=== PATIENT | male | born 1945 | race Caucasian/White ===

== ENCOUNTER 2019-09-25 15:19 | Inpatient (IN) | payer MEDICARE, OTHER, SELFPAY ==
[2019-09-25] VITALS (10 sets, daily range): BP systolic 111–158; BP diastolic 54–69; PULSE 67–88; RESP 18–20; TEMP 36.6–36.8; O2SAT 97–100; BMI 32.0; BMI 31.1
--- NOTE | 2019-09-25 15:52 | EKG12_ITS ---
Test Reason : Blood Pressure : / mmHG Vent. Rate : 066 BPM Atrial Rate : 066 BPM P-R Int : 150 ms QRS Dur : 086 ms QT Int : 416 ms P-R-T Axes : 053 -16 031 degrees QTc Int : 436 ms Sinus rhythm with Premature atrial complexes Otherwise normal ECG Confirmed by ARETHA VILLAFANA, ASAEL ([id number]), movie editor LOGAN LAZO ([id number]) on 09/27/2019 12:59:54 PM Referred By: Confirmed By:NELLI CARIAS MD
--- NOTE | 2019-09-25 15:58 | RAD_ITS ---
We are attempting to reach an attending provider to discuss findings. An addendum with communication details will be sent when the communication is complete. STUDY: X-RAY CHEST REASON FOR EXAM: Male, 73 years old. CHEST PAIN WITH SOB TECHNIQUE: AP COMPARISON: None. FINDINGS: The lungs are clear and expanded. There is a noncalcified solid nodule in the right upper lobe measuring 2.87 x 2.74 cm possibly neoplastic. There is a second smaller nodular density in left upper lobe measuring approximately 7 mm. There is no demonstrated pleural abnormality. Heart is enlarged. Normal mediastinum and irma. Normal visualized pulmonary arteries. Normal visualized aortic arch and descending thoracic aorta. Dorsal spine demonstrates degenerative change. Normal visualized ribs, clavicles, and shoulders. There is no demonstrated abnormality of the visualized soft tissue structures of the upper abdomen. RAD/Chest 1 View (Portable) IMPRESSION: No acute cardiopulmonary pathology however there is noncalcified nodule in the right upper lobe and small one in the left upper lobe possibly neoplasm. CT recommended for further evaluation Electronically Signed: Adalid Lundy MD at 16:10 EDT , Service support ,
--- NOTE | 2019-09-25 15:59 | ED.DCSUM_ITS ---
History of Present Illness Chief Complaint: Abn Labs Informant: Patient Narrative: Patient presents stating that he needs blood and platelet transfusion. He has a history of myelodysplastic syndrome and follows with Dr. Ever Torres, hematology at [facility]. Patient states he was up there last week and had blood work obtained. He has been having exertional chest pain. Patient was at the office again today and was told he needed to have a transfusion. Patient states he was told he would need to be in the hospital for a week because they would want to do a series of injections, and the patient did not want to be in [facility] that long so he came back to [place] to be admitted here. They did not bring the records or lab results with him. Patient is sitting in a bedside chair at this time he denies any chest pain or dyspnea at rest. - Past Medical History (1) Myelodysplastic syndrome Status: Chronic Past Medical History - Allergies and Home Meds Allergies/Adverse Reactions: Allergies No Known Allergies Allergy (Verified 09/25/19 15:22) Primary Care Physician: Dereje Elizabeth MD [PATHOLOGY STAFF PHYSICIAN] - Lives: Spouse/ Significant Other Review of Systems General: Denies: Chills, Fever Eyes: Denies: Visual changes - bilaterally ENT: Denies: Bilateral ear pain Cardiovascular: Reports: Chest pain Respiratory: Denies: Dyspnea, Cough, Sputum Gastrointestinal: Denies: Abdominal pain, Nausea, Vomiting, Diarrhea Genitourinary: Denies: Dysuria Skin: Denies: Rash Neurological: Denies: Headache Allergy: Denies: Uticaria Physical Exam Vital Signs/Narrative: Vital Signs Temp Pulse Resp BP Pulse Ox 09/25/19 15:20 98.0 F 75 20 H 158/69 H 97 Inital Vital Signs reviewed: Yes General: Well nourished, Well developed Head: Normocephalic ENT: Moist mucous membranes Neck: Supple Cardiovascular: Regular rate, Regular rhythm Respiratory: No distress, CTA bilaterally Abdomen: Soft, Nontender, Normal bowel sounds Back: Nontender Extremities: Nontender Skin: Pallor Neurological: Alert, Oriented x3 Psychological: Normal affect Diagnostic/Tx/Re-eval Impressions Chest X-Ray 09/25/19 15:58 IMPRESSION: No acute cardiopulmonary pathology however there is noncalcified nodule in the right upper lobe and small one in the left upper lobe possibly neoplasm. CT recommended for further evaluation Electronically Signed: Adalid Lundy MD at 16:10 EDT , Service support , ADDENDUM: 09/25/19 1630 IMPRESSION: No acute cardiopulmonary pathology however there is noncalcified nodule in the right upper lobe and small one in the left upper lobe possibly neoplasm. CT recommended for further evaluation N.B. : The above information has been verbally conveyed by Adalid Lundy MD to Jen Pendleton MD, MD, on 09/25/2019 16:23:57 (ET). Electronically Signed: Adalid Lundy MD at 16:10 EDT , Service support , 09/25/19 15:58 Chest 1 View (Portable) [RAD] Stat Laboratory Results 09/25/19 09/25/19 09/25/19 16:30 16:30 16:30 WBC 2.5 L RBC 1.90 L Hgb 6.6 L Hct 19.8 L MCV 104.2 H MCH 34.7 H MCHC 33.3 RDW Std Deviation 54.9 H RDW Coeff of Javier 14.6 MPV 13.4 H Neut % (Auto) Not Reportable PT 14.9 INR 1.2 APTT 29.0 Sodium 142 Potassium 4.1 Chloride 111 H Carbon Dioxide 28.0 Anion Gap 3 L BUN 13 Creatinine 0.95 Estim Creat Clear Calc 70.29 Est GFR (MDRD) Af Amer 100 Est GFR (MDRD) Non-Af 82 BUN/Creatinine Ratio 13.6 Glucose 101 Calcium 9.0 Troponin I 0.049 H Crossmatch 09/25/19 16:30 WBC RBC Hgb Hct MCV MCH MCHC RDW Std Deviation RDW Coeff of Javier MPV Neut % (Auto) PT INR APTT Sodium Potassium Chloride Carbon Dioxide Anion Gap BUN Creatinine Estim Creat Clear Calc Est GFR (MDRD) Af Amer Est GFR (MDRD) Non-Af BUN/Creatinine Ratio Glucose Calcium Troponin I Crossmatch See Detail - EKG Initial EKG Interpretation: Sinus Rhythm - Sinus at 66 with occasional PACs. No acute ischemia. - Medical Decision Making I attempted to contact the patient's [place] physician, Dr. Ever Torres. I was able to speak with a nurse in the hematology department who was able to pull up the patient's recent records. On September 17 he had blood work obtained that revealed a hemoglobin of 8 and a platelet count of 20,000. His neutrophil count was 1.1. Nurse states she does not see in his note how many units of blood or platelets he wanted transfused, however states typically for those numbers they would transfuse 2 units of platelets and 1 unit of blood. Patient was ordered to 5 packs of platelets here and 1 unit of blood. Blood work today returns with a hemoglobin of 6.6 and platelet count of 16,000. Patient also had advised me that he was told he would likely need a series of shots over the next week. When I asked the nurse at the [place] about this she was guessing this was secondary to the patient's neutropenia. They are working on a voucher so the patient can be seen by 1 of the local field mechanical meter tester. My hope would be we could have hematology see him in-house and then arrange close follow-up going forward. Patient's chest x-ray did show a lung nodules. I did speak with the family and patient and notify them of these findings and need for follow-up. ED Disposition - Plan for ED Patient: Disposition: Acute [facility] Diagnosis: Pancytopenia, Exertional chest pain Referrals: Dereje Elizabeth MD [PATHOLOGY STAFF PHYSICIAN] -
--- NOTE | 2019-09-25 16:09 | ED.RN ---
NO OLD EKG
[2019-09-25 16:46] LABS: Hematocrit 19.8 % (40-54); Hemoglobin 6.6 g/dL (13.0-16.5); Mean Corp Hgb Conc 33.3 g/dL (32-36); Mean Corpuscular Hgb 34.7 pg (27.0-32.0); Mean Corpuscular Volume 104.2 fL (80-94); Mean Platelet Vol. 13.4 fl (6.2-12.0); POSITIVE COUNT YES; POSITIVE MORPHOLOGY YES; RBC Distribution Width CV 14.6 % (11.6-14.6); RBC Distribution Width SD 54.9 fl (35.1-43.9); White Blood Count 2.5 K/mm3 (4.4-11.0)
[2019-09-25 16:55] LABS: International Normalized Ratio 1.2; Prothrombin Time (Protime)PT. 14.9 SECONDS (11.7-14.9)
[2019-09-25 17:06] LABS: Anion Gap 3 (5-15); BUN 13 mg/dL (7-18); BUN/Creat Ratio 13.6 RATIO (10-20); Chloride 111 mmol/L (98-107); Creatinine, Serum 0.95 mg/dL (0.70-1.30); EST Glomerular Filtration Rate 82 mL/min (>60); Est Glom Filt Rate - Afr Amer 100 mL/min (>60); Estimated Creatinine Clearance 70.29 ml/min; Glucose 101 mg/dL (74-106); Potassium 4.1 mmol/L (3.5-5.1); Sodium Level 142 mmol/L (136-145)
[2019-09-25 17:09] LABS: Differential Indicated MANUAL DIFF; Platelet Count 16 K/mm3 (150-450)
[2019-09-25 17:17] LABS: Lymphocyte 47 % (19-41); Monocyte 2 % (0-10); Neutrophil-Band 8 % (0-5); Neutrophil-Segmented 43 % (47-70); Total Cells Counted 100 (MANUAL DIFF)
[2019-09-25 17:19] LABS: Anisocytosis 1+; Macrocytosis 1+
[2019-09-25 17:20] LABS: Platelet Estimate MKD DEC (ADEQ); Red Cell Morphology N CHROM NORMAL (NORM C&C)
[2019-09-25 17:21] LABS: Absolute Lymphocyte Count 1.18 X10^3/uL (0.83-4.51); Absolute Neutrophil Count 1.3 X10^3/uL (2.0-7.7)
--- NOTE | 2019-09-25 19:47 | EKG12_ITS ---
Test Reason : CP ADMISSION Blood Pressure : / mmHG Vent. Rate : 073 BPM Atrial Rate : 073 BPM P-R Int : 150 ms QRS Dur : 084 ms QT Int : 410 ms P-R-T Axes : 072 -18 042 degrees QTc Int : 451 ms Sinus rhythm with Premature atrial complexes Otherwise normal ECG No previous ECGs available Confirmed by EFRA VILLAFANA, MIRANDA ([id number]), sound editor LOGAN LAZO ([id number]) on 10/01/2019 7:52:54 AM Referred By: DR FERNANDEZ Confirmed By:MIRANDA KRAUS MD
--- NOTE | 2019-09-25 19:55 | PCM.HP.STD ---
Problem List (1) Myelodysplastic syndrome Status: Chronic (2) Pancytopenia Status: Acute Comment: Acute on chronic (3) Exertional chest pain Status: Acute History of Present Illness Date of Admission: 09/25/19 Chief Complaint: Severe anemia and thrombocytopenia. Was sent from [facility]. 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 Ever Burns for PRBC and platelet transfusion. Patient also complaining of exertional chest pain on walking which resolves after taking rest. He also has dyspnea on exertion but denies diaphoresis dizziness or syncope. Patient was also told that he will remain in the [facility] for a week therefore he did not want to stay and came to [facility]. Patient does not have chest pain or shortness of breath at rest. In ED, vital signs are stable. Blood pressure 158/69. CBC shows pancytopenia, WBC 2.5 thousand, H&H 6.6/20, platelet count 16,000. Neutrophil bands 8%, ANC 1.3K. Morphology shows anisocytosis, and microcytosis. First troponin 0 0.049. Twelve-lead EKG shows sinus rhythm with PACs at 66 bpm. QTc [address] abnormality. No previous EKG available to compare with. Chest x-ray reported as 2.8 x 2.7 cm noncalcified solid nodule in right upper lobe possibly neoplastic. Second small nodular density left upper lobe measuring approximately [address] scan recommended by radiologist. This is a new information for the patient. Patient quit smoking in 1973. At most about 12 pack years of smoking. Patient has history of orange kind of chemical exposure during [place] war. 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 [] Past Medical History Past Medical History (Chronic Problems): Chronic Problems Myelodysplastic syndrome (Chronic) Allergies No Known Allergies Allergy (Verified 09/25/19 15:22) Home Medications: Ambulatory Orders Medication Instructions Recorded Cholecalciferol (Vitamin D3) 2,000 unit PO DAILY 09/25/19 [Vitamin D3] Multivitamins,Therapeutic 1 tab PO DAILY 09/25/19 [Multivitamin] Simvastatin 20 mg PO DAILY 09/25/19 Lives: Spouse/ Significant Other Smoking Status: Former smoker Tobacco Use: Cigarettes, Pipe - *Family History Paternal History Items: No pertinent history - No first-degree history of cancer in father mother brother sister. Review of Systems Constitutional: Reports: Malaise, Weakness. Denies: Chills, Fever, Weight Change HEENT: Denies: Head Aches, Sinus Congestion, Sinus Drainage Cardiovascular: Reports: Chest Pain - On exertion, Chest Pressure. Denies: Palpitations Respiratory: Reports: Shortness of breath upon exertion. Denies: Cough, Shortness of breath at rest, Sputum production Gastrointestinal: Denies: Abdominal Pain, Nausea, Vomiting Genitourinary: Denies: Dysuria Musculoskeletal: Denies: Joint Pain, Joint Tenderness Skin: Denies: Rash, Wounds Neurological: Denies: Numbness, Tingling, Focal weakness Psychiatric: Denies: Anxiety, Depression, Homicidal Ideations, Suicidal Ideations Hematologic/ Lymphatic: Reports: Easy Bruising, Easy Bleeding. Denies: Petechiae, Purpura VTE Information - Inpt Only VTE Present on Admission: No VTE Mechan Device Prophylaxis: SCD's VTE Pharm Prophylaxis ordered?: - Severe thrombocytopenia and anemia Reason prophylaxis not ordered:: Medical Contraindication - Severe thrombocytopenia and anemia Patient Problems: Active and Suspected Problems Pancytopenia (Acute) Acute on chronic Exertional chest pain (Acute) - Physical Exam Vitals/I&O's: Vital Signs Temp Pulse Resp BP Pulse Ox 98.0 F 68 19 H 117/65 98 09/25/19 18:39 09/25/19 18:39 09/25/19 18:39 09/25/19 18:39 09/25/19 18:39 Oxygen Delivery Method Room Air Weight: 216 lb 14.958 oz Body Mass Index (BMI) 32.0 General: Alert, Oriented x3, Cooperative HEENT: Atraumatic, PERRLA, EOMI, Normocephalic Neck: Supple, No JVD, Negative Carotid Bruits Lungs: Clear to auscultation, No rhonchi, No wheeze, No rales, Diminished Cardiovascular: Regular rate, Regular Rhythm, Normal S1, Normal S2, No murmurs Abdomen: Bowel Sounds Present, Soft, Non Tender, Non-Distended Extremities: Capillary Refill Less than 3 Seconds, Edema - Mild 1+ ankle edema Skin: No rashes, No breakdown Musculoskeletal: No Tenderness to Palpation of Joints or Extremities, Arthritic Changes Neurological: Cranial nerves II-XII grossly intact, Neuro grossly intact, Motor Exam 5/5 strength throughout Psych/Mental Status: Normal Affect, Appropriate Laboratory Results 09/25/19 16:30: WBC 2.5 L, RBC 1.90 L, Hgb 6.6 L, Hct 19.8 L, MCV 104.2 H, MCH 34.7 H, MCHC 33.3, RDW Std Deviation 54.9 H, RDW Coeff of Javier 14.6, Plt Count 16 L*, MPV 13.4 H, Neut % (Auto) Not Reportable, Absolute Neuts (auto) 1.3 L, Absolute Lymphs (auto) 1.18, Total Counted 100, Neutrophils % (Manual) 43 L, Band Neutrophils % 8 H, Lymphocytes % (Manual) 47 H, Monocytes % (Manual) 2, Diff Path Review November, Platelet Estimate MKD DEC, RBC Morphology N CHROM, Anisocytosis 1+, Macrocytosis 1+ 09/25/19 16:30: PT 14.9, INR 1.2, APTT 29.0 09/25/19 16:30: Sodium 142, Potassium 4.1, Chloride 111 H, Carbon Dioxide 28.0, Anion Gap 3 L, BUN 13, Creatinine 0.95, Estim Creat Clear Calc 70.29, Est GFR (MDRD) Af Amer 100, Est GFR (MDRD) Non-Af 82, BUN/Creatinine Ratio 13.6, Glucose 101, Calcium 9.0, Troponin I 0.049 H 09/25/19 16:30: Blood Type O POSITIVE, Antibody Screen NEGATIVE, Crossmatch See Detail Current Medications Acetaminophen (Tylenol) 650 mg PO Q6H PRN PRN PRN Reason: Pain Score 1-10/Temp > 100.7 F Al Hydroxide/Mg Hydroxide (Mylanta Ii) 30 ml PO Q6H PRN PRN PRN Reason: Gastric Burning Albuterol Sulfate (Ventolin Aerosols) 2.5 mg INHALATION Q2H PRN PRN PRN Reason: SOB/Wheezing Dextrose (D50w Syringe) 0 gm IV X1 PRN; Protocol PRN Reason: Hypoglycemia Famotidine (Pepcid) 20 mg PO BID ALICE Glucagon () 1 mg IM .X1 PRN PRN Reason: Hypoglycemia Sodium Chloride () 1,000 mls @ 50 mls/hr IV .Q20H ALICE Melatonin (Melatonin) 3 mg PO QHS PRN PRN PRN Reason: INSOMNIA Morphine Sulfate () 2 mg IV Q3H PRN PRN PRN Reason: Pain Score 6-10/10 Multivitamins (Multivitamin) tablet PO DAILY [facility] Nitroglycerin (Nitrostat) 0.4 mg SUBLINGUAL Q5M PRN PRN Reason: CARDIAC/CHEST PAIN Non-Formulary Medication (Cholecalciferol (Vitamin D3) [Vitamin D3]) 2,000 unit PO DAILY ALICE Non-Formulary Medication (Simvastatin) 20 mg PO DAILY ALICE Oxycodone HCl (Oxyir) 5 mg PO Q4H PRN PRN PRN Reason: Pain Score 4-5/10 Prochlorperazine Edisylate (Compazine Iv) 5 mg IV Q4H PRN PRN PRN Reason: Breakthrough Nausea/Vomiting Senna/Docusate Sodium (Senokot-S, Lita-Colace) 2 tablet PO BID PRN PRN PRN Reason: Constipation Sodium Chloride () 10 - 40 ml IV UD PRN PRN Reason: SALINE FLUSH Throat Lozenges (Cepacol Sore Throat Lozenge) 1 lozenge MUCOUS MEM Q2H PRN PRN PRN Reason: SORE THROAT Assessment/Plan All Active Problems Pancytopenia (Acute) Exertional chest pain (Acute) The patient is a 73 year old M with history of MDS, diagnosed after bone marrow biopsy in 2019 was 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 Patient also complaining of exertional chest pain on walking which resolves after taking rest. He also has dyspnea on exertion but denies diaphoresis dizziness or syncope. CBC shows pancytopenia, WBC 2.5 thousand, H&H 6.6/20, platelet count 16,000. Neutrophil bands 8%, ANC 1.3K. Morphology shows anisocytosis, and microcytosis. First troponin 0 0.049. Twelve-lead EKG shows sinus rhythm with PACs at 66 bpm. QTc [address] abnormality. No previous EKG available to compare with. 1. Severe pancytopenia secondary to MDS: Patient is being admitted in PCU. 2 units of PRBC and platelet transfusion ordered by [place] physician. Patient currently not having active purpura or bruise or petechial signs therefore platelet transfusion is not indicated unless spontaneous hemorrhage or platelet count less than 10,000. Hematology consult. 2. Chest pressure, most probably angina secondary to severe anemia on exertion: Cycle troponin enzymes. I do not think patient requires a stress test as severe anemia and thrombocytopenia with red cell for stress for the patient. 2D echo is ordered. Patient simvastatin continued. 3. Elevated blood pressure: Blood pressure is 158/69 the most recent one, 117/65. Patient denies history of hypertension and is not on antihypertensive medication. Follow blood pressure and if is persistently elevated will need antihypertensive medication, as ACEI/ARB. 4. Right upper lung nodule in chest x-ray with history of soft tissue sarcoma and prostate cancer: CT chest ordered for tomorrow a.m. Follow CT chest. May need pulmonary consult if lung nodule found on CT chest. Patient follows steel plate printer/oncologist Dr. Ever Torres in [facility]. Chest x-ray reported as 2.8 x 2.7 cm noncalcified solid nodule in right upper lobe possibly neoplastic. Patient quit smoking in 1973. At most about 12 pack years of smoking. DVT prophylaxis: Bilateral SCDs. Pharmacological prophylaxis contraindicated. Advanced directive/living will/CODE STATUS: Patient has living will at home. Patient's requested to bring the living will tomorrow a.m. Patient does not want artificial life support including intubation, tube feed, ventilator and/chest compression, vasopressor therapy or invasive CVC line. Patient is DNR CC Arrest. Total time spent in [id number] encounter in discussion of advanced directive 16 minutes. Inpatient E&M: 00629 Init Hosp L3 Procedures: 16061 Advncd Care Plan 30 Min
[2019-09-25] MEDS: Famotidine 20 MG Tablet PO (21:16)
[2019-09-25] MEDS: Atorvastatin Calcium 10 MG Tablet PO (21:16)
--- NOTE | 2019-09-25 23:03 | NURSING ---
This RN spoke with Boris in blood bank about this RN not having the option on [employer]TAR to give the second unit of platelets. Order present, platelets in blood bank ready, and paper for blood present and able to be sent when filled out. This RN called lunchroom food service supervisor and then spoke IT, IT at this time was unable to assist. Between this RN, Boris in Blood bank, and lunchroom food service supervisor decision made to use downtime paper charting for the second unit of platelets.
[2019-09-26] VITALS (17 sets, daily range): BP systolic 107–133; BP diastolic 53–70; PULSE 65–75; RESP 16–18; TEMP 36.6–36.9; O2SAT 92–100
--- NOTE | 2019-09-26 01:22 | NURSING ---
This RN is now able to view 2nd unit of platelets under of TAR, normal documentation continued as per policy. See TAR
[2019-09-26] MEDS: 0.9% Normal Saline 1,000 ML 50 ML IV (02:10)
[2019-09-26 03:00] LABS: Mean Corp Hgb Conc 33.3 g/dL (32-36); Mean Corpuscular Volume 101.9 fL (80-94); Mean Platelet Vol. 9.6 fl (6.2-12.0); POSITIVE COUNT YES; POSITIVE MORPHOLOGY YES; Platelet Count 67 K/mm3 (150-450); RBC Distribution Width CV 15.9 % (11.6-14.6); RBC Distribution Width SD 58.9 fl (35.1-43.9); Red Blood Count 2.06 M/mm3 (4.6-6.2); White Blood Count 3.1 K/mm3 (4.4-11.0)
[2019-09-26 03:13] LABS: Differential Indicated MANUAL DIFF
[2019-09-26 04:37] LABS: Blast 5 % (0-0); Eosinophil 1 % (0-5); Lymphocyte 20 % (19-41); Metamyelocyte 3 % (0-1); Monocyte 5 % (0-10); Neutrophil-Band 14 % (0-5); Neutrophil-Segmented 52 % (47-70); Total Cells Counted 100 (MANUAL DIFF)
[2019-09-26 04:38] LABS: Absolute Lymphocyte Count 0.61 X10^3/uL (0.83-4.51); Lymphocyte # 0.61 X10^3/ul (4.0); Monocyte# 0.15 X10^3/uL; Neutrophil # 2.01 X10^3/uL (2.7-7.7)
[2019-09-26 04:39] LABS: Anisocytosis 2+; Hypochromasia 1+; Microcytosis 1+; Platelet Estimate MOD DEC (ADEQ); Schistocytes 1+; Stomatocyte RARE
[2019-09-26 04:55] LABS: AST(SGOT) 13 U/L (15-37); Alanine Aminotransfer ALT/SGPT 17 U/L (16-61); Albumin, Serum 3.6 g/dL (3.2-5.0); Alkaline Phosphatase 52 U/L (45-117); Anion Gap 8 (5-15); BUN 12 mg/dL (7-18); BUN/Creat Ratio 13.1 RATIO (10-20); Bilirubin, Direct 0.33 mg/dL (0.00-0.30); Calcium,Total 8.7 mg/dL (8.5-10.1); Chloride 109 mmol/L (98-107); Cholesterol 104 mg/dL (200); Creatinine, Serum 0.92 mg/dL (0.70-1.30); EST Glomerular Filtration Rate 86 mL/min (>60); Est Glom Filt Rate - Afr Amer 104 mL/min (>60); Estimated Creatinine Clearance 72.58 ml/min; Globulin 2.9 g/dL (2.2-4.2); Glucose 105 mg/dL (74-106); High Density Lipoprotein 34 mg/dL; Potassium 3.7 mmol/L (3.5-5.1); Protein, Total 6.5 g/dL (6.4-8.2); Sodium Level 144 mmol/L (136-145); Thyroid Stim Hormone (TSH) 2.34 uIU/mL (0.358-3.74); Triglycerides 135 mg/dL; Very Low Density Lipoprotein 27 mg/dL (5-40)
--- NOTE | 2019-09-26 05:55 | ECHOCS_ITS ---
Reason For Study: CHEST PAIN Procedure This was a 2D Doppler, Color Flow transthoracic echocardiogram. The study was technically difficult. Due to body habitus. Contrast injection was performed. Exam performed portable in patient room. Left Ventricle Normal LV size. The estimated ejection fraction is 50-55 %. No evidence for diastolic dysfunction. No regional wall motion abnormalities noted. Right Ventricle Normal right ventricle. Normal systolic function. Atria Normal left atrium. Normal right atrium. No doppler evidence for ASD. Mitral Valve There is no mitral valve stenosis. Trivial mitral valve insufficiency. Tricuspid Valve There is no tricuspid stenosis. Mild tricuspid valve insufficiency. Aortic Valve Trisinus/trileaflet aortic valve. There is no aortic stenosis. No aortic valve insufficiency. Pulmonic Valve There is no pulmonic valvular stenosis. No pulmonic valve insufficiency. Great Vessels Normal aortic root. Pericardium/Pleural No pericardial effusion. Medication Diluted definity 2.0ml given slow IV push to enhance endocardial definition. MMode/2D Measurements & Calculations LVIDd: 5.5 cm IVSd: 1.2 cm Ao root diam: 3.4 cm LVIDs: 4.3 cm LVPWd: 1.2 cm RVDd: 3.7 cm FS: 21.4 % LAV(MOD-bp): 101.6 ml LA A4 area: 29.7 cm2 LA dimension(2D): 3.8 cm LAV(MOD-bp) Indexed: 48.2 ml/m2 LAV(MOD-sp2): 93.5 ml LAV(MOD-sp4): 107.5 ml RA A4 area: 24.8 cm2 Time Measurements MV dec time: 0.17 sec Doppler Measurements & Calculations MV E max alireza: 105.4 cm/sec Lat Peak E' Alireza: 7.6 cm/sec Med Peak E' Alireza: 5.2 cm/sec MV A max alireza: 92.5 cm/sec E/E' lat: 13.9 E/E' med: 20.4 MV E/A: 1.1 MV V2 max: 122.3 cm/sec MV P1/2t max alireza: 123.1 cm/sec Ao V2 max: 168.2 cm/sec MV max P.0 mmHg MV P1/2t: 62.4 msec Ao max P.3 mmHg MV V2 mean: 66.4 cm/sec MV dec slope: 577.4 cm/sec2 Ao V2 mean: 124.2 cm/sec MV mean P.1 mmHg Ao mean P.6 mmHg MV V2 VTI: 32.3 cm MVA(P1/2t): 3.5 cm2 Ao V2 VTI: 36.9 cm LV V1 max: 97.4 cm/sec MR max alireza: 507.6 cm/sec PA V2 max: 116.9 cm/sec LV V1 max P.8 mmHg MR max P.1 mmHg LV V1 mean P.5 mmHg MR mean alireza: 416.8 cm/sec LV V1 mean: 77.1 cm/sec MR mean P.9 mmHg LV V1 VTI: 24.1 cm MR VTI: 165.0 cm PI dec slope: 93.2 cm/sec2 TR max alireza: 259.9 cm/sec TR max P.0 mmHg Interpretation Summary The study was technically difficult. Contrast injection was performed. The estimated ejection fraction is 50-55 %. No evidence for diastolic dysfunction. Trivial mitral valve insufficiency. Mild tricuspid valve insufficiency. The study was technically difficult. Contrast injection was performed. Ordering Physician: Conrad Enriquez Referring Physician: [facility] Performed By: Yamileth Romano RDCS, RVT
--- NOTE | 2019-09-26 05:55 | CT_ITS ---
STUDY: CT CHEST WITHOUT CONTRAST REASON FOR EXAM: Male, 73 years old. Right upper lung mass, prostate cancer, soft tissue sarcoma, MDS, anemia, exertional chest pain. RADIATION DOSAGE (If Supplied By Facility): CTDIvol = ( 18.39 ) mGy, DLP = ( 684.77 ) mGycm TECHNIQUE: Transaxial imaging was performed without the administration of intravenous contrast material. Multiplanar coronal and sagittal images were reformatted. Individualized dose optimization techniques were used for this CT. COMPARISON: None. FINDINGS: There are bilateral pulmonary nodules. The largest nodules in the posterior medial aspect of the right upper lobe measuring 2.7 cm x 2.7 cm. Mild degree of bronchiectasis and scarring in the left lower lobe. There is no demonstrated pleural abnormality. There are calcifications of the coronary arteries. There are multiple small lymph nodes within the mediastinum, which are normal in size and morphology most compatible with reactive lymph hyperplasia. Normal hilar regions. Normal unenhanced pulmonary arteries. There is atherosclerotic calcification of the aortic arch . There are multi-level degenerative changes of the thoracic spine. Small hiatal hernia. CT/Chest without Contrast IMPRESSION: Multiple pulmonary nodules. Electronically Signed: Arnold Peralta, at 14:21 EDT , Service support ,
[2019-09-26] MEDS: Famotidine 20 MG Tablet PO (09:32)
[2019-09-26] MEDS: Multivitamins,Therapeutic Tablet 1 TABLET PO (09:32)
[2019-09-26 09:49] LABS: Pathologist Review Reviewed
[2019-09-26 09:51] LABS: Pathologist Review Reviewed
--- NOTE | 2019-09-26 11:00 | CASEMGMT ---
Addendum entered by Theresa Lambert 09/26/19 14:29: 1100: Reviewed [facility] transfer [place] with pt. Pt states does not want to transfer to [facility]. Declination form signed by pt, copy made and placed on chart and original given to pt. Form faxed to [facility] along with clinicals at this time. Original Note: RN CM MUSIC PUBLISHER CM to room to meet with patient for initial transition planning/care coordination assessment. RN MARIEL introduced self and role at [facility]. Pt voices understanding and consents to assessment at this time. Pt resting in bed in no distress at this time., Chrissie, at bedside. Pt is A/O at this time and answers all questions appropriately. Care providers, pharmacy, and demographics verified/updated at this time. PCP: Dr Hobson Specialists: Dr Ever Torres--insurance follow up representative @ [facility]. They are working on getting pt a voucher so pt can be seen by local insurance follow up representative. Pt/ also made aware Web Worker can be billed through [facility] as well. They voice understanding. Preferred Pharmacy: [facility] for day of discharge. Usually gets short-term meds through [facility] in [place]. [place]. Insurance: [facility], Other Commercial. [place] benefits. Prescription Benefit: Yes Living Will/HPOA: Has both LW and Healthcare POA, who is his , Chrissie Quispe. gave both of these to IRMA FLOYD at this time. Copies made and given to cyber defense forensics analyst, Opal, to be sent to registration and placed on pt's chart. Originals returned to . LNOK: , Chrissie Living Arrangements: Lives w/his in 2-story home w/12 steps w/railing between floors. Bedroom is on 2nd floor. There is a bathroom on both levels. Pt independent w/ADL's and does the laundry, dishes, and manages his own medicines/appts. Transportation: Pt states drives self and states no transportation concerns at this time. also drives. DME: Denies using any DME and denies needs. HHC/SNF: No history of either, denies needs, and no need identified. Pt wishes to return home and states has no concerns with going home at time of discharge. CM to follow for any discharge planning/needs. Pt/ voice no concerns/needs at this time. Advised them to ask for CM if any further questions/concerns/needs arise. They voice understanding. PLAN: Home w/spousal support and discharge plans in place. Ankur BOOGIEN RN CM
[2019-09-26 12:50] LABS: Bedside Glucose 110 mg/dL (70-110)
--- NOTE | 2019-09-26 16:07 | CHAPLAIN ---
Type of Pastoral Visit _x__ Initial Visit ___ Follow-up Visit ___ On-call Visit ___ General Patient Visit ___ Spiritual Assessment ___ Family Conference ___ Bereavement ___ Rapid Response ___ Code Blue ___ Other (describe below) Pastoral Care Referral From _x__ Patient ___ Family ___ Nurse ___ Physician ___ Cadd Drafter ___ Siderographist ___ Other (describe below) Sacrament/Intervention _x__ Active listening ___ Anointing ___ Uatsdin ___ Bereavement ___ Communion _x__ Margie exploration ___ ___ Life review _x__ Prayer ___ Reconciliation ___ Sacrament of Sick ___ Supportive presence ___ Wedding ___ Other (describe below) Pastoral Comments
[2019-09-26 16:29] LABS: Hematocrit 26.7 % (40-54); Hemoglobin 8.8 g/dL (13.0-16.5)
--- NOTE | 2019-09-26 16:30 | PN_ITS ---
Patient Problems: Active and Suspected Problems Pancytopenia (Acute) Acute on chronic Exertional chest pain (Acute) Subjective: Patient was seen and examined today, his hemoglobin this morning was 7, he does have evidence of blasts on his smear this morning. Patient's platelet count is now 67,000. I briefly discussed his care with cardiology today, patient's enzymes were intermediately elevated when he was admitted, cardiology requested that I walk the patient after he has his transfusion and if he has chest pain, they will be glad to see the patient in consultation. Also talked briefly with hematology today about his care. - Physical Exam Vitals/I&O's: Vital Signs Temp Pulse Resp BP Pulse Ox 98.4 F 66 16 117/60 95 09/26/19 14:30 09/26/19 15:00 09/26/19 14:30 09/26/19 14:30 09/26/19 14:30 Oxygen Delivery Method Room Air Weight: 95.7 kg Body Mass Index (BMI) 31.1 Intake and Output for Last 24 Hours 09/24/19 09/25/19 09/26/19 23:59 23:59 23:59 Intake Total 440 / 440 Balance 440 / 440 General: Alert, Oriented x3, Cooperative, No apparent distress, Well developed HEENT: Atraumatic, PERRLA, EOMI, Normocephalic Oral: Moist Mucosa Neck: Supple, No JVD, Trachea Midline, Thyroid Normal Size and Texture Lungs: Clear to auscultation, Normal air movement, No rhonchi, No wheeze, No rales Cardiovascular: Regular rate, Regular Rhythm, Normal S1, Normal S2, No murmurs, PMI Normal, No rub noted Abdomen: Bowel Sounds Present, Soft, Non Tender, Non-Distended, No hernias noted Extremities: No clubbing, No cyanosis, No edema, Capillary Refill Less than 3 Seconds Skin: No rashes, No breakdown Musculoskeletal: No Tenderness to Palpation of Joints or Extremities Neurological: Cranial nerves II-XII grossly intact, Neuro grossly intact, Sensory exam intact to light touch and pain, Coordination normal Psych/Mental Status: Normal Affect, Appropriate, Alert and oriented to time, place, person, mood and affect Laboratory Results 09/25/19 16:30: WBC 2.5 L, RBC 1.90 L, Hgb 6.6 L, Hct 19.8 L, MCV 104.2 H, MCH 34.7 H, MCHC 33.3, RDW Std Deviation 54.9 H, RDW Coeff of Javier 14.6, Plt Count 16 L*, MPV 13.4 H, Neut % (Auto) Not Reportable, Absolute Neuts (auto) 1.3 L, Absolute Lymphs (auto) 1.18, Total Counted 100, Neutrophils % (Manual) 43 L, Band Neutrophils % 8 H, Lymphocytes % (Manual) 47 H, Monocytes % (Manual) 2, Diff Path Review Reviewed, Platelet Estimate MKD DEC, RBC Morphology N CHROM, Anisocytosis 1+, Macrocytosis 1+ 09/25/19 16:30: PT 14.9, INR 1.2, APTT 29.0 09/25/19 16:30: Sodium 142, Potassium 4.1, Chloride 111 H, Carbon Dioxide 28.0, Anion Gap 3 L, BUN 13, Creatinine 0.95, Estim Creat Clear Calc 70.29, Est GFR (MDRD) Af Amer 100, Est GFR (MDRD) Non-Af 82, BUN/Creatinine Ratio 13.6, Glucose 101, Calcium 9.0, Troponin I 0.049 H 09/25/19 16:30: Blood Type O POSITIVE, Antibody Screen NEGATIVE, Crossmatch See Detail 09/25/19 16:30: Crossmatch See Detail 09/25/19 16:30: Crossmatch See Detail 09/25/19 20:13: Troponin I 0.057 H 09/25/19 22:53: Troponin I 0.086 H 09/26/19 02:28: WBC 3.1 L, RBC 2.06 L, Hgb 7.0 L, Hct 21.0 L, MCV 101.9 H, MCH 34.0 H, MCHC 33.3, RDW Std Deviation 58.9 H, RDW Coeff of Javier 15.9 H, Plt Count 67 L, MPV 9.6, Neut % (Auto) Not Reportable, Absolute Neuts (auto) 2.0, Absolute Lymphs (auto) 0.61 L, Total Counted 100, Neutrophils % (Manual) 52, Band Neutrophils % 14 H, Lymphocytes % (Manual) 20, Monocytes % (Manual) 5, Eosinophils % (Manual) 1, Metamyelocytes % 3 H, Blast Cells % 5 H*, Diff Path Review Reviewed, Platelet Estimate MOD DEC, Hypochromasia 1+, Anisocytosis 2+, Microcytosis 1+, Stomatocytes RARE, Schistocytes 1+ 09/26/19 02:28: Sodium 144, Potassium 3.7, Chloride 109 H, Carbon Dioxide 27.0, Anion Gap 8, BUN 12, Creatinine 0.92, Estim Creat Clear Calc 72.58, Est GFR (MDRD) Af Amer 104, Est GFR (MDRD) Non-Af 86, BUN/Creatinine Ratio 13.1, Glucose 105, Calcium 8.7, Total Bilirubin 1.60 H, Direct Bilirubin 0.33 H, AST 13 L, ALT 17, Alkaline Phosphatase 52, Total Protein 6.5, Albumin 3.6, Globulin 2.9, Triglycerides 135, Cholesterol 104, LDL Cholesterol 43, VLDL Cholesterol 27, HDL Cholesterol 34 L, TSH 2.34 09/26/19 02:28: Troponin I 0.100 H 09/26/19 04:34: Troponin I 0.095 H 09/26/19 12:40: POC Glucose 110 09/26/19 15:55: Hgb 8.8 L, Hct 26.7 L Current Medications Acetaminophen (Tylenol) 650 mg PO Q6H PRN PRN PRN Reason: Pain Score 1-10/Temp > 100.7 F Al Hydroxide/Mg Hydroxide (Mylanta Ii) 30 ml PO Q6H PRN PRN PRN Reason: Gastric Burning Albuterol Sulfate (Ventolin Aerosols) 2.5 mg INHALATION Q2H PRN PRN PRN Reason: SOB/Wheezing Atorvastatin Calcium (Lipitor) 10 mg PO QHS [facility] Last Admin: 09/25/19 21:16 Dose: 10 mg Documented by: Cholecalciferol (Vitamin D (25mcg)) 2,000 unit PO DAILY [facility] Last Admin: 09/26/19 09:31 Dose: 2,000 unit Documented by: Famotidine (Pepcid) 20 mg PO BID [facility] Last Admin: 09/26/19 09:32 Dose: 20 mg Documented by: Glucagon () 1 mg IM .X1 PRN PRN Reason: Hypoglycemia Sodium Chloride () 1,000 mls @ 50 mls/hr IV .Q20H [facility] Last Infusion: 09/26/19 14:30 Dose: 50 mls/hr Documented by: Dextrose (Dextrose 10%-Water) 250 mls @ 999 mls/hr IV .Q16M PRN; Protocol PRN Reason: HYPOGLYCEMIA Melatonin (Melatonin) 3 mg PO QHS PRN PRN PRN Reason: INSOMNIA Morphine Sulfate () 2 mg IV Q3H PRN PRN PRN Reason: Pain Score 6-10/10 Multivitamins (Multivitamin) 1 tablet PO DAILY@0800 [facility] Last Admin: 09/26/19 09:32 Dose: 1 tablet Documented by: Nitroglycerin (Nitrostat) 0.4 mg SUBLINGUAL Q5M PRN PRN Reason: CARDIAC/CHEST PAIN Oxycodone HCl (Oxyir) 5 mg PO Q4H PRN PRN PRN Reason: Pain Score 4-5/10 Prochlorperazine Edisylate (Compazine Iv) 5 mg IV Q4H PRN PRN PRN Reason: Breakthrough Nausea/Vomiting Senna/Docusate Sodium (Senokot-S, Lita-Colace) 2 tablet PO BID PRN PRN PRN Reason: Constipation Sodium Chloride () 10 - 40 ml IV UD PRN PRN Reason: SALINE FLUSH Throat Lozenges (Cepacol Sore Throat Lozenge) 1 lozenge MUCOUS MEM Q2H PRN PRN PRN Reason: SORE THROAT Medical Necessity - Tobacco Use Smoking Status: Former smoker Tobacco Use: Cigarettes, Pipe Assessment/Plan All Active Problems Pancytopenia (Acute) Exertional chest pain (Acute) #1 pancytopenia-secondary to MDS-I will recheck the patient's CBC in the morning, hematology will see the patient today. #2 intermediate troponin with complaints of chest pain-etiology unclear, patient will be ambulated today and tomorrow to see if he still has evidence of his chest discomfort when he ambulates. Patient states this chest discomfort is like a pressure. #3 myelodysplastic syndrome Inpatient E&M: 10808 Subs Hosp L2
--- NOTE | 2019-09-26 16:53 | CON.PCM_ITS ---
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 Torres, diagnosis was made in October 2018, has not received any active treatment to date and was on active surveillance, was seen September 25, 2019 with severe s ymptomatic anemia and exertional chest pain and was advised to proceed to the closest hospital emergency room for admission and was admitted to [facility] with this complaint. 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 #3 history of prostate cancer status post radioactive seed implants in 2008 #4 Multiple bilateral lung nodules were discovered on his CT scan September 25, 2019 concerning for metastatic malignancy. Past Medical History: Chronic Problems Soft tissue sarcoma of neck (Chronic) Myelodysplastic syndrome (Chronic) Past Medical/Surgical History: Past Medical History - Most Recent Inpatient Visit Past Medical History Start: 09/25/19 16:49 Text: Status: Complete Freq: Protocol: Document 09/25/19 16:52 JHomero (Rec: 09/25/19 16:55 J [id number]) BMI Required to complete PMH What is Patient's BMI 32.0 Past Medical History Unable History Recalled No Query Text:Pt Unable/Family Not Present Neurologic Medical History Hx Stroke/TIA No Hx Dementia/Alzheimer's No Hx Parkinson's Disease No Hx Seizures No Hx Multiple Sclerosis No Hx Migraines No Cardiac Medical History VTE Present on Admission No Hx of Deep Vein Thrombosis/VTE/PE No Hx Hypertension No Hx Chest Pain/Angina Yes Hx Heart Attack No Hx Cardiac Surgery/Stents/Etc. No Hx Heart Failure No Hx Pacemaker/AICD No Hx Irregular Heartbeat and/or Afib No Hx Anticoagulant Therapy No Query Text:(Coumadin, Aspirin, Plavix, Xarelto, etc.) Hx Pain in Legs when Walking/Leg Cramps No Respiratory Medical History Hx COPD No Hx Emphysema No Hx Smoking Yes: 1.5 ppd Smoking Status Former smoker Tobacco Use Cigarettes,Pipe Years Smoking 1.5 Hx Smoking Cessation Date 07/17/73 Hx Tobacco Use in last 12 months No Hx of Pipe Smoking Yes Hx of Cigar Smoking No Hx Sleep Apnea No Do you snore loudly (louder than talking No or can be heard through closed doors)? Do you often feel tired/ fatigued/ Yes sleepy during daytime? Has anyone observed you stop breathing No during sleep? STOP Results Negative GI Medical History Hx Ulcer No Hx Hepatitis No Hx Cirrhosis No Hx GI Bleed No Hx Unplanned Weight Loss No Genitourinary Medical History Indwelling Catheter in Place on Arrival/ No Admission Hx Renal Disease No Hx Dialysis No Musculoskeletal History Hx Arthritis Yes Hx Rheumatoid Arthritis No Endocrine Medical History Hx Diabetes No Hx Thyroid Disease No Hematologic Medical History Hx of Blood Transfusion No Hx of Transfusion in last 3 Months No Ever experience any problems with No transfusion(s)? Hx of Preganancy in last 3 Months N/A Nurse Filling Out Transfusion & JLAMP Questions: Date: 09/25/19 Time: 16:54 Psycho/Social Medical History Hx Depression No Hx Anxiety No Hx Behavior Disorder No Hx Alcohol Use Yes: beer 2-3 times a week Hx Substance Use No Other Medical History Hx Blood Disorders Yes: MDS displasia Hx Anemia Yes Hx Cancer Yes: prostate. Hx Drug Resistant Organism No Wound/Pressure Injury Present on Arrival No /Admission Query Text:If yes, chart assessment in Shift/Clinical Findings Central Line/PICC/VAD Present on Arrival No /Admission Antibiotics within last 7 days? No Risk for Readmission Number of Risk Factors 5 At Risk for Readmission Patient is At Risk For Readmission Patient is eligible for Call Back Y Paternal Family History: No pertinent history - No first-degree history of cancer in father mother brother sister. - Social History Lives: Spouse/ Significant Other Smoking Status: Former smoker Tobacco Use: Cigarettes, Pipe Allergies/Adverse Reactions: Allergy/AdvReac Type Severity Reaction Status Date / Time No Known Allergies Allergy Verified 09/25/19 15:22 Review of Systems Constitutional:: Reports: Weakness, Fatigue. Denies: Fever, Sweats, Weight loss, Appetite change, Chills Cardiovascular:: Reports: Chest pain - Retrosternal heaviness on exertion at ADL level relief with rest, Dyspnea on exertion. Denies: Palpitations, Orthopnea, PND, Shortness of breath Respiratory: Reports: Shortness of breath upon exertion. Denies: Cough, Hemoptysis, Shortness of Breath, Wheezing Gastrointestinal:: Denies: Abdominal pain, Nausea, Vomiting, Diarrhea, Constipation, Hematochezia Genitourinary: Denies: Dysuria, Hematuria, 15, Flank pain Musculoskeletal:: Denies: Back pain, Myalgia, Arthralgia Skin: Denies: Rash, Skin Changes, Wounds Neurological:: Denies: Headache, Dizziness, Visual changes, Tinnitus, Hearing loss Psychiatric: Denies: Anxiety, Depression, Homicidal Ideations, Suicidal Ideations Vital Signs Height 5 ft 9 in Weight: 95.7 kg Weight in Pounds 211.0 lbs Pulse Ox 95 Temperature 98.4 F Pulse Rate 66 Respiratory Rate 16 Blood Pressure 117/60 Blood Pressure Position Semi-Fowlers - Physical Exam General: Alert, Oriented x3, No apparent distress, - - ECOG 1-2, obese HEENT: Atraumatic, PERRLA, EOMI, Normocephalic Oropharynx:: Dry mucosa Neck:: Supple, Trachea midline, - - Back of the neck scar of prior sarcoma surgery. Negative for: JVD, bilateral Cardiac:: Regular rate, Regular rhythm, Normal S1, Normal S2. Negative for: Murmur Lungs: Clear to auscultation, Diminished, Excusion symmetrical. Negative for: Rhonchi, Wheezes Abdomen:: Soft, Non-tender, Non-distended. Negative for: Hepatosplenomegaly Extremities:: Negative for: Cyanosis, Edema Neurological: Neuro grossly intact Skin:: Negative for: Lesions, Rash, Petechiae, Ecchymosis Psychiatric:: Appropriate affect, Euthymic Lymphatics:: Negative for: Cervical lymphadenopathy, Supraclavicular lymphadenopathy, Axillary lymphadenopathy Laboratory Data: Laboratory Tests 09/26/19 09/26/19 09/26/19 Range/Units 15:55 12:40 04:34 WBC (4.4-11.0) K/mm3 RBC (4.6-6.2) M/mm3 Hgb 8.8 L (13.0-16.5) g/dL Hct 26.7 L (40-54) % MCV (80-94) fL MCH (27.0-32.0) pg MCHC (32-36) g/dL RDW Std Deviation (35.1-43.9) fl RDW Coeff of Javier (11.6-14.6) % Plt Count (150-450) K/mm3 MPV (6.2-12.0) fl Neut % (Auto) Absolute Neuts (auto) (2.0-7.7) X10^3/uL Absolute Lymphs (auto) (0.83-4.51) X10^3/uL Total Counted (MANUAL DIFF) Neutrophils % (Manual) (47-70) % Band Neutrophils % (0-5) % Lymphocytes % (Manual) (19-41) % Monocytes % (Manual) (0-10) % Eosinophils % (Manual) (0-5) % Metamyelocytes % (0-1) % Blast Cells % (0-0) % Diff Path Review Platelet Estimate (ADEQ) RBC Morphology (NORM C&C) NORMAL Hypochromasia Anisocytosis Microcytosis Macrocytosis Stomatocytes Schistocytes PT (11.7-14.9) SECONDS INR APTT (24.1-36.2) Seconds Sodium (136-145) mmol/L Potassium (3.5-5.1) mmol/L Chloride (98-107) mmol/L Carbon Dioxide (21.0-32.0) mmol/L Anion Gap (5-15) BUN (7-18) mg/dL Creatinine (0.70-1.30) mg/dL Estim Creat Clear Calc ml/min Est GFR (MDRD) Af Amer (>60) mL/min Est GFR (MDRD) Non-Af (>60) mL/min BUN/Creatinine Ratio (10-20) RATIO Glucose (74-106) mg/dL Calcium (8.5-10.1) mg/dL Total Bilirubin (0.20-1.00) mg/dL Direct Bilirubin (0.00-0.30) mg/dL AST (15-37) U/L ALT (16-61) U/L Alkaline Phosphatase (45-117) U/L Troponin I 0.095 H (<0.045) ng/mL Total Protein (6.4-8.2) g/dL Albumin (3.2-5.0) g/dL Globulin (2.2-4.2) g/dL Triglycerides ( - 199) mg/dL Cholesterol (200) mg/dL LDL Cholesterol (0-130) mg/dL VLDL Cholesterol (5-40) mg/dL HDL Cholesterol (40 - ) mg/dL TSH (0.358-3.74) uIU/mL POC Glucose 110 (70-110) mg/dL Blood Type Antibody Screen Crossmatch 09/26/19 09/26/19 09/26/19 Range/Units 02:28 02:28 02:28 WBC 3.1 L (4.4-11.0) K/mm3 RBC 2.06 L (4.6-6.2) M/mm3 Hgb 7.0 L (13.0-16.5) g/dL Hct 21.0 L (40-54) % MCV 101.9 H (80-94) fL MCH 34.0 H (27.0-32.0) pg MCHC 33.3 (32-36) g/dL RDW Std Deviation 58.9 H (35.1-43.9) fl RDW Coeff of Javier 15.9 H (11.6-14.6) % Plt Count 67 L (150-450) K/mm3 MPV 9.6 (6.2-12.0) fl Neut % (Auto) Not Reportable Absolute Neuts (auto) 2.0 (2.0-7.7) X10^3/uL Absolute Lymphs (auto) 0.61 L (0.83-4.51) X10^3/uL Total Counted 100 (MANUAL DIFF) Neutrophils % (Manual) 52 (47-70) % Band Neutrophils % 14 H (0-5) % Lymphocytes % (Manual) 20 (19-41) % Monocytes % (Manual) 5 (0-10) % Eosinophils % (Manual) 1 (0-5) % Metamyelocytes % 3 H (0-1) % Blast Cells % 5 H* (0-0) % Diff Path Review Reviewed Platelet Estimate MOD DEC (ADEQ) RBC Morphology (NORM C&C) NORMAL Hypochromasia 1+ Anisocytosis 2+ Microcytosis 1+ Macrocytosis Stomatocytes RARE Schistocytes 1+ PT (11.7-14.9) SECONDS INR APTT (24.1-36.2) Seconds Sodium 144 (136-145) mmol/L Potassium 3.7 (3.5-5.1) mmol/L Chloride 109 H (98-107) mmol/L Carbon Dioxide 27.0 (21.0-32.0) mmol/L Anion Gap 8 (5-15) BUN 12 (7-18) mg/dL Creatinine 0.92 (0.70-1.30) mg/dL Estim Creat Clear Calc 72.58 ml/min Est GFR (MDRD) Af Amer 104 (>60) mL/min Est GFR (MDRD) Non-Af 86 (>60) mL/min BUN/Creatinine Ratio 13.1 (10-20) RATIO Glucose 105 (74-106) mg/dL Calcium 8.7 (8.5-10.1) mg/dL Total Bilirubin 1.60 H (0.20-1.00) mg/dL Direct Bilirubin 0.33 H (0.00-0.30) mg/dL AST 13 L (15-37) U/L ALT 17 (16-61) U/L Alkaline Phosphatase 52 (45-117) U/L Troponin I 0.100 H (<0.045) ng/mL Total Protein 6.5 (6.4-8.2) g/dL Albumin 3.6 (3.2-5.0) g/dL Globulin 2.9 (2.2-4.2) g/dL Triglycerides 135 ( - 199) mg/dL Cholesterol 104 (200) mg/dL LDL Cholesterol 43 (0-130) mg/dL VLDL Cholesterol 27 (5-40) mg/dL HDL Cholesterol 34 L (40 - ) mg/dL TSH 2.34 (0.358-3.74) uIU/mL POC Glucose (70-110) mg/dL Blood Type Antibody Screen Crossmatch 09/25/19 09/25/19 09/25/19 Range/Units 22:53 20:13 16:30 WBC (4.4-11.0) K/mm3 RBC (4.6-6.2) M/mm3 Hgb (13.0-16.5) g/dL Hct (40-54) % MCV (80-94) fL MCH (27.0-32.0) pg MCHC (32-36) g/dL RDW Std Deviation (35.1-43.9) fl RDW Coeff of Javier (11.6-14.6) % Plt Count (150-450) K/mm3 MPV (6.2-12.0) fl Neut % (Auto) Absolute Neuts (auto) (2.0-7.7) X10^3/uL Absolute Lymphs (auto) (0.83-4.51) X10^3/uL Total Counted (MANUAL DIFF) Neutrophils % (Manual) (47-70) % Band Neutrophils % (0-5) % Lymphocytes % (Manual) (19-41) % Monocytes % (Manual) (0-10) % Eosinophils % (Manual) (0-5) % Metamyelocytes % (0-1) % Blast Cells % (0-0) % Diff Path Review Platelet Estimate (ADEQ) RBC Morphology (NORM C&C) NORMAL Hypochromasia Anisocytosis Microcytosis Macrocytosis Stomatocytes Schistocytes PT (11.7-14.9) SECONDS INR APTT (24.1-36.2) Seconds Sodium (136-145) mmol/L Potassium (3.5-5.1) mmol/L Chloride (98-107) mmol/L Carbon Dioxide (21.0-32.0) mmol/L Anion Gap (5-15) BUN (7-18) mg/dL Creatinine (0.70-1.30) mg/dL Estim Creat Clear Calc ml/min Est GFR (MDRD) Af Amer (>60) mL/min Est GFR (MDRD) Non-Af (>60) mL/min BUN/Creatinine Ratio (10-20) RATIO Glucose (74-106) mg/dL Calcium (8.5-10.1) mg/dL Total Bilirubin (0.20-1.00) mg/dL Direct Bilirubin (0.00-0.30) mg/dL AST (15-37) U/L ALT (16-61) U/L Alkaline Phosphatase (45-117) U/L Troponin I 0.086 H 0.057 H (<0.045) ng/mL Total Protein (6.4-8.2) g/dL Albumin (3.2-5.0) g/dL Globulin (2.2-4.2) g/dL Triglycerides ( - 199) mg/dL Cholesterol (200) mg/dL LDL Cholesterol (0-130) mg/dL VLDL Cholesterol (5-40) mg/dL HDL Cholesterol (40 - ) mg/dL TSH (0.358-3.74) uIU/mL POC Glucose (70-110) mg/dL Blood Type Antibody Screen Crossmatch See Detail 09/25/19 09/25/19 09/25/19 Range/Units 16:30 16:30 16:30 WBC (4.4-11.0) K/mm3 RBC (4.6-6.2) M/mm3 Hgb (13.0-16.5) g/dL Hct (40-54) % MCV (80-94) fL MCH (27.0-32.0) pg MCHC (32-36) g/dL RDW Std Deviation (35.1-43.9) fl RDW Coeff of Javier (11.6-14.6) % Plt Count (150-450) K/mm3 MPV (6.2-12.0) fl Neut % (Auto) Absolute Neuts (auto) (2.0-7.7) X10^3/uL Absolute Lymphs (auto) (0.83-4.51) X10^3/uL Total Counted (MANUAL DIFF) Neutrophils % (Manual) (47-70) % Band Neutrophils % (0-5) % Lymphocytes % (Manual) (19-41) % Monocytes % (Manual) (0-10) % Eosinophils % (Manual) (0-5) % Metamyelocytes % (0-1) % Blast Cells % (0-0) % Diff Path Review Platelet Estimate (ADEQ) RBC Morphology (NORM C&C) NORMAL Hypochromasia Anisocytosis Microcytosis Macrocytosis Stomatocytes Schistocytes PT (11.7-14.9) SECONDS INR APTT (24.1-36.2) Seconds Sodium 142 (136-145) mmol/L Potassium 4.1 (3.5-5.1) mmol/L Chloride 111 H (98-107) mmol/L Carbon Dioxide 28.0 (21.0-32.0) mmol/L Anion Gap 3 L (5-15) BUN 13 (7-18) mg/dL Creatinine 0.95 (0.70-1.30) mg/dL Estim Creat Clear Calc 70.29 ml/min Est GFR (MDRD) Af Amer 100 (>60) mL/min Est GFR (MDRD) Non-Af 82 (>60) mL/min BUN/Creatinine Ratio 13.6 (10-20) RATIO Glucose 101 (74-106) mg/dL Calcium 9.0 (8.5-10.1) mg/dL Total Bilirubin (0.20-1.00) mg/dL Direct Bilirubin (0.00-0.30) mg/dL AST (15-37) U/L ALT (16-61) U/L Alkaline Phosphatase (45-117) U/L Troponin I 0.049 H (<0.045) ng/mL Total Protein (6.4-8.2) g/dL Albumin (3.2-5.0) g/dL Globulin (2.2-4.2) g/dL Triglycerides ( - 199) mg/dL Cholesterol (200) mg/dL LDL Cholesterol (0-130) mg/dL VLDL Cholesterol (5-40) mg/dL HDL Cholesterol (40 - ) mg/dL TSH (0.358-3.74) uIU/mL POC Glucose (70-110) mg/dL Blood Type O POSITIVE Antibody Screen NEGATIVE Crossmatch See Detail See Detail 09/25/19 09/25/19 Range/Units 16:30 16:30 WBC 2.5 L (4.4-11.0) K/mm3 RBC 1.90 L (4.6-6.2) M/mm3 Hgb 6.6 L (13.0-16.5) g/dL Hct 19.8 L (40-54) % MCV 104.2 H (80-94) fL MCH 34.7 H (27.0-32.0) pg MCHC 33.3 (32-36) g/dL RDW Std Deviation 54.9 H (35.1-43.9) fl RDW Coeff of Javier 14.6 (11.6-14.6) % Plt Count 16 L* (150-450) K/mm3 MPV 13.4 H (6.2-12.0) fl Neut % (Auto) Not Reportable Absolute Neuts (auto) 1.3 L (2.0-7.7) X10^3/uL Absolute Lymphs (auto) 1.18 (0.83-4.51) X10^3/uL Total Counted 100 (MANUAL DIFF) Neutrophils % (Manual) 43 L (47-70) % Band Neutrophils % 8 H (0-5) % Lymphocytes % (Manual) 47 H (19-41) % Monocytes % (Manual) 2 (0-10) % Eosinophils % (Manual) (0-5) % Metamyelocytes % (0-1) % Blast Cells % (0-0) % Diff Path Review Reviewed Platelet Estimate MKD DEC (ADEQ) RBC Morphology N CHROM (NORM C&C) NORMAL Hypochromasia Anisocytosis 1+ Microcytosis Macrocytosis 1+ Stomatocytes Schistocytes PT 14.9 (11.7-14.9) SECONDS INR 1.2 APTT 29.0 (24.1-36.2) Seconds Sodium (136-145) mmol/L Potassium (3.5-5.1) mmol/L Chloride (98-107) mmol/L Carbon Dioxide (21.0-32.0) mmol/L Anion Gap (5-15) BUN (7-18) mg/dL Creatinine (0.70-1.30) mg/dL Estim Creat Clear Calc ml/min Est GFR (MDRD) Af Amer (>60) mL/min Est GFR (MDRD) Non-Af (>60) mL/min BUN/Creatinine Ratio (10-20) RATIO Glucose (74-106) mg/dL Calcium (8.5-10.1) mg/dL Total Bilirubin (0.20-1.00) mg/dL Direct Bilirubin (0.00-0.30) mg/dL AST (15-37) U/L ALT (16-61) U/L Alkaline Phosphatase (45-117) U/L Troponin I (<0.045) ng/mL Total Protein (6.4-8.2) g/dL Albumin (3.2-5.0) g/dL Globulin (2.2-4.2) g/dL Triglycerides ( - 199) mg/dL Cholesterol (200) mg/dL LDL Cholesterol (0-130) mg/dL VLDL Cholesterol (5-40) mg/dL HDL Cholesterol (40 - ) mg/dL TSH (0.358-3.74) uIU/mL POC Glucose (70-110) mg/dL Blood Type Antibody Screen Crossmatch Laboratory Tests 09/25/19 09/26/19 09/26/19 16:30 02:28 15:55 WBC 2.5 L 3.1 L Hgb 6.6 L 7.0 L 8.8 L Plt Count 16 L* 67 L Absolute Neuts (auto) 1.3 L 2.0 Blast Cells % 5 H* Diagnostic Data: Diagnostic Data Chest X-Ray 09/25/19 15:58 IMPRESSION: No acute cardiopulmonary pathology however there is noncalcified nodule in the right upper lobe and small one in the left upper lobe possibly neoplasm. CT recommended for further evaluation Electronically Signed: Adalid Lundy MD at 16:10 EDT , Service support , ADDENDUM: 09/25/19 1630 IMPRESSION: No acute cardiopulmonary pathology however there is noncalcified nodule in the right upper lobe and small one in the left upper lobe possibly neoplasm. CT recommended for further evaluation N.B. : The above information has been verbally conveyed by Adalid Lundy MD to Jen Pendleton MD, , on 09/25/2019 16:23:57 (ET). Electronically Signed: Adalid Lundy MD at 16:10 EDT , Service support , Chest CT 09/26/19 05:55 IMPRESSION: Multiple pulmonary nodules. Electronically Signed: Arnold Peralta, at 14:21 EDT , Service support , I personally reviewed patient's CT scan chest images and concur with the reported findings Assessment and Plan 73-year-old male [place] with history of exposure to agent orange presenting with severe symptomatic anemia, exertional chest pain. From the hematology oncology aspect he has multiple problems includin. MDS, initial diagnosis October 2018, was under observation, now has evidence of disease progression to severe symptomatic transfusion requiring anemia and pancytopenia. 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 He needs an updated bone marrow aspirate and biopsy to assess the extent of disease progression.. Patient presented with exertional chest pain and fatigue both improved with packed red blood cell transfusion and his hemoglobin is now above the target of 8 g per DL. He has no active bleeding therefore further elective prophylactic transfusion of platelets is not warranted. However I would advise against use antiplatelet agents or systemic pharmacologic anticoagulants due to severe underlying thrombocytopenia. 2. Multiple bilateral lung nodules most consistent with metastatic malignancy and based on history likely metastatic soft tissue sarcoma that was resected in 2006 and 2013, these were incidentally found on admission CT. Pathologic confirmation would require a CT-guided biopsy. This may be of academic interest only and is of secondary priority in comparison to his progressive MDS. 3. History of prostate cancer status post radioactive seeds 2008 I met with the patient and his , discussed the findings and recommendations as above. He would like to continue his care with Dr. Torres at the [facility]. Therefore from the hematology oncology point of view once he becomes stable with a cardiac point of view he can be discharged to pursue further care at the [facility]. Ford Shafer MD [employer], [facility] Divisions of Medical Oncology & Hematology Department of Internal Medicine [place] [phone] This note was generated using a voice recognition system software. Although it was reviewed by the author prior to finalization, it may still contain incorrect words, spelling, and punctuation that were not noted when reviewing prior to saving. If a clinically significant typo or inaccurately typed phrase is noted, please notify the author. . Medications: Prescriptions This Visit Medication Instructions Recorded Cholecalciferol (Vitamin D3) 2,000 unit PO DAILY 09/25/19 [Vitamin D3] Multivitamins,Therapeutic 1 tab PO DAILY 09/25/19 [Multivitamin] Simvastatin 20 mg PO DAILY 09/25/19 Medications Added to Medication List This Visit Category Date Time Status Cholecalciferol (VIT D3) [Vitamin D (25mcg)] Med 09/26/19 10:00 Active 2,000 unit PO DAILY Multivitamins,Therapeutic [Multivitamin] Med 09/26/19 08:00 Active 1 tablet PO DAILY@0800 Primary Care Provider: Ernesto Hobson MD Referring Provider:
[2019-09-26 17:00] LABS: Bedside Glucose 129 mg/dL (70-110)
--- NOTE | 2019-09-26 18:14 | DCINST_ITS ---
- Discharge Diagnoses Current Active Problems: Current Active and Chronic Problems Soft tissue sarcoma of neck (Chronic) Multiple lung nodules on CT (Acute) Pancytopenia (Acute) Acute on chronic Exertional chest pain (Acute) You will use the following diet at home:: No restrictions Your food should be the consistency of: Regular Your liquids should be the consistency of: Regular/Thin Discharge Activity: Return to Normal Activity Weight Bearing Status: Full weight bearing Additional Instructions: You will need to get a CT of the chest with constrast done-get your primary care physician to order this, you may also need a stress test ordered, talk with your physician about this Allergies/Adverse Reactions: Allergies No Known Allergies Allergy (Verified 09/25/19 15:22) Medications to take at Discharge Cholecalciferol (Vitamin D3) [Vitamin D3] 2,000 unit PO DAILY 09/25/19 Multivitamins,Therapeutic [Multivitamin] 1 tab PO DAILY 09/25/19 Simvastatin 20 mg PO DAILY 09/25/19 Primary Care Physician: Dereje Elizabeth MD [PATHOLOGY STAFF PHYSICIAN] - Test Results: Test results from this visit will be discussed in further detail at your follow- up appointment, if applicable. Please Follow Up With: your Primary care physician When: in 1-2 weeks Please Follow Up With: Your oncologist When: next week or as scheduled
--- NOTE | 2019-09-29 15:21 | DS.PCM_ITS ---
Discharge Date and Diagnosis Date of Admission: 09/25/19 Date of Discharge: 09/26/19 - Primary Discharge Diagnosis #1 pancytopenia secondary to myelodysplastic syndrome requiring transfusion of packed red blood cells and platelets #2 intermediate troponin elevation-etiology unknown #3 myelodysplastic syndrome #4 chest pain-etiology unknown - Secondary Discharge Diagnosis Chronic Problems Soft tissue sarcoma of neck (Chronic) Myelodysplastic syndrome (Chronic) Hospital Course and Treatment Operations: None Procedures: 2-D Echocardiogram, Blood transfusion Summary of Care Provided: The patient is a 73 year old M was seen in the emergency room at [facility] after being told to go to the hospital for evaluation of abnormal blood work obtained as an outpatient. Patient has a history of myelodysplastic syndrome. Patient had also been complaining of exertional chest pain. Lab obtained in the emergency room showed a white blood cell count of 2.5, hemoglobin was 6.6, platelet count was 16,000. Troponin was 0.049. Patient's EKG showed normal sinus rhythm without evidence of ischemia. Patient was admitted to PCU, serial cardiac enzymes were obtained and they remained in the intermediate range, he received transfusions of packed red blood cells and platelets. He was seen in consultation by hematology. On 09/26/2019, patient was seen and examined: On examination he appeared in good health and spirits. Vital signs as documented. Skin warm and dry and without overt rashes. Neck without JVD. Lungs clear. Heart exam notable for regular rhythm, normal sounds and absence of murmurs, rubs or gallops. Abdomen unremarkable and without evidence of organomegaly, masses, or abdominal aortic enlargement. Extremities nonedematous. Neuro: Cranial nerves II through XII are grossly intact, no focal motor deficits were noted, sensation to light touch and pinprick intact. Psych: Patient is alert and oriented x3, he does not appear anxious or depressed Patient appears stable for discharge home on 09/26/2019, patient was ambulated prior to discharge and had no complaints of any chest pain. Patient was to follow-up with his sleeper cutter and his primary care physician regarding further testing regarding his chest discomfort and his myelodysplastic syndrome. - Physical Exam Vitals/I&O's: Vital Signs Temp Pulse Resp BP Pulse Ox 98.4 F 66 16 117/60 95 09/26/19 14:30 09/26/19 15:00 09/26/19 14:30 09/26/19 14:30 09/26/19 14:30 Oxygen Delivery Method Room Air Weight: 95.7 kg Body Mass Index (BMI) 31.1 Discharge Activity: Return to Normal Activity Weight Bearing Status: Full weight bearing Home Medications: Medications to take at Discharge Cholecalciferol (Vitamin D3) [Vitamin D3] 2,000 unit PO DAILY 09/25/19 Multivitamins,Therapeutic [Multivitamin] 1 tab PO DAILY 09/25/19 Simvastatin 20 mg PO DAILY 09/25/19 Primary Care Physician: Dereje Elizabeth MD [PATHOLOGY STAFF PHYSICIAN] - Please Follow Up With: your Primary care physician When: in 1-2 weeks Please Follow Up With: Your oncologist When: next week or as scheduled Please Follow Up With: Dereje Elizabeth MD Disposition: Home Minutes spent on discharge:: 31 Patient Condition:: Stable Medical Necessity - Tobacco Use Smoking Status: Former smoker Tobacco Use: Cigarettes, Pipe Meaningful Use Info Meaningful Use Diagnoses (Choose all that apply): None applicable Inpatient E&M: 42951 Disch Hosp
== END 2019-09-26 18:44 | disposition home or self-care (01) | DRG 812 ==
LOC: ED 17:16 → PCU 18:04
PROVIDERS: Family Medicine; Admitting Provider Internal Medicine; Emergency Provider Emergency Medicine; PCP Family Medicine; Visit Provider Internal Medicine
DX: D46.9 Myelodysplastic syndrome, unspecified (principal); C78.02 Secondary malignant neoplasm of left lung; C78.01 Secondary malignant neoplasm of right lung; Z87.891 Personal history of nicotine dependence; Z85.46 Personal history of malignant neoplasm of prostate; C76.0 Malignant neoplasm of head, face and neck; Z92.3 Personal history of irradiation
CPT/HCPCS: 36415; 71045; 71250; 80048; 80061; 80076; 82962; 84443; 84484; 85014; 85018; 85025; 85610; 85730; 86850; 86900; 86901; 86920; 86922; 86965; 93005; 93306; 99251; 99285; J7030; J7040; P9016; P9035; P9040; Q9957; A4216; C8929; G0463

== ENCOUNTER 2019-10-17 05:16 | Day surgery (SDC) | payer MEDICARE, OTHER, SELFPAY ==
--- NOTE | 2019-10-09 01:34 | HP_ITS ---
Intake Vital Signs 10/09/19 Height 5 ft 8 in 10/09/19 Weight: 213 lb 10/09/19 Respiration 16 10/09/19 Temp 98.1 F 10/09/19 Temp Source Oral 10/09/19 BMI 32.3 Intake Visit Reasons: PORT PLACEMENT Chief Complaint: Low blood counts Remote Sensing Advisor Required: No Is patient in pain?: No Allergies No Known Allergies Allergy (Verified 10/09/19 12:53) Medications Cholecalciferol (Vitamin D3) [Vitamin D3] 2,000 unit PO DAILY 09/25/19 [History Confirmed 10/09/19] Multivitamins,Therapeutic [Multivitamin] 1 tab PO DAILY 09/25/19 [History Confirmed 10/09/19] Simvastatin 40 mg PO DAILY 09/25/19 [History Confirmed 10/09/19] PFSH Medical History ALL TEETH EXTRACTED (Acute) Myelodysplastic syndrome (Acute) Prostate cancer (Acute) RESECTION OF NECK MASS (Acute) Soft tissue sarcoma (Acute) Family History Father Prostate cancer Mother Lung cancer Social History (Updated 10/09/19 @ 13:[address] Becky Cutler MD) Smoking Status: Former smoker HPI HPI HPI: GENIE DIAZ, is a 73 M who presents to the office today for HPI HPI Surgical H&P: Yes HPI: GENIE DIAZ, is a 73 M who presents to the office today for port placement. 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 Patient has newly diagnosed lung nodules bilaterally. He also has a history of MDS which he did recently receive 3 units packed red blood cells as well as 2 units of platelets due to the hemoglobin of 6 and platelets of 16. Most recent platelets are 10 and hemoglobin is 8.9. Patient is planning to start chemotherapy on October 20. ROS General General: Yes colon cancer; no weight change, fatigue, breast cancer or weakness HEENT HEENT: No difficulty swallowing, eye injury, eye surgery, swollen glands or hoarseness Endo Endocrine: No thyroid disease, diabetes mellitus, thyroid cancer, Hair loss, heat intolerance or cold intolerance Skin Skin: No rash or changing moles Breast Breast: No left breast lump, right breast lump, nipple discharge, breast pain, abnormal mammogram, abnormal US or breast enlargement Musc Musculoskeletal: No back problems, arthritis, rheumatoid arthritis, gout or joint pain Cardio Cardiovascular: No murmur, pacemaker, heart disease, atrial fibrillation, high blood pressure, heart attack, heart stent, palpitations, shortness of breat with exertion or chest pain Psych Psychiatric: No depression, anxiety or hearing voices Resp Respiratory: No shortness of breath, No sleep apnea, No cough, No COPD, No asthma, No emphysema, No wheezing Gastro Gastrointestinal: No abdominal pain, No nausea or vomiting, No diarrhea, No constipation, No blood in stool, No acid reflux, No hemorrhoids, No ulcers, No gallbladder problem, No black,tarry stools Donnell Hematologic: No blood thinners, No blood disorders, No bleeding, Yes anemia, No blood clots Neuro Neurologic: No system reviewed and no additional complaints, except as docu, No as per HPI, No abnormal walking, No abnormal hearing, No abnormal movements, No abnormal speech, No behavioral changes, No burning sensations, No confusion, No seizure-like activity, No unsteadiness, No dizziness, No localized weakness, No frequent falls, No headache(s), No lack of coordination, No loss of vision, No memory loss, No numbness, No other visual disturbances, No radiating pain, No restless legs, No sensory deficit, No fainting, No tingling, No tremor(s), No weakness, No other Exam Const General: cooperative, comfortable, no acute distress Chest Chest palpation & inspection: normal inspection of the chest (Anterior/superior as well as anterior neck) Breast Palpation: No nipple discharge Resp Effort & Inspection: normal respiratory effort Cardio Rate: regular rate Heart Sounds: no murmurs Assessment & Plan Problems 1. Adjustment and management of vascular access device Z45.2 2. Multiple lung nodules on CT R91.8 3. Pancytopenia D61.818 Acute on chronic 4. 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 Myelodysplastic syndrome D46.9 Plan Patient's platelets from yesterday's lab draw were 10. This is acute on chronic as patient does have MDS. Discussed this with Dr. Shafer and Dr. Rogers plan will be to transfuse 1 unit (sixpack) of platelets completely and then use the remaining 1 unit to run throughout the case. We will plan to have patient get labs drawn the day before procedure for CBC and type and cross for 2 units single donor a pheresis platelets. Procedure is planned for October 16. I have discussed above with the patient- Port-a-Cath placement. Right possible left Patient has been counseled as to the risks/benefits of the procedure. I have explained the risks of the surgery, including but not limited to: infection, bleeding, injury to any blood vessels/nerves, injury to lungs (such as pneumothorax or hemothorax and need for chest tube), not having any access, nonfunctioning of port due to thrombosis, infection of port, etc. the patient understands and agrees to proceed. I have answered all the patient's questions to the patient?s satisfaction and the patient has no further questions. Becky Cutler M.D. Pager: [phone] [facility] [address] [place] [address], [address] [place] [address] Office: 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
[2019-10-09 13:03] VITALS: BMI 32.3
[2019-10-16 09:23] LABS: Hematocrit 21.7 % (40-54); Hemoglobin 7.2 g/dL (13.0-16.5); Mean Corp Hgb Conc 33.2 g/dL (32-36); Mean Corpuscular Hgb 32.4 pg (27.0-32.0); Mean Corpuscular Volume 97.7 fL (80-94); Mean Platelet Vol. 12.4 fl (6.2-12.0); POSITIVE COUNT YES; POSITIVE MORPHOLOGY YES; RBC Distribution Width CV 15.9 % (11.6-14.6); RBC Distribution Width SD 55.9 fl (35.1-43.9); Red Blood Count 2.22 M/mm3 (4.6-6.2); White Blood Count 3.3 K/mm3 (4.4-11.0)
[2019-10-16 09:32] LABS: Differential Indicated MANUAL DIFF; Platelet Count 8 K/mm3 (150-450)
[2019-10-16 10:13] LABS: Blast 5 % (0-0); Lymphocyte 37 % (19-41); Metamyelocyte 6 % (0-1); Monocyte 4 % (0-10); Myelocyte 6 (0-0); Neutrophil-Band 3 % (0-5); Neutrophil-Segmented 37 % (47-70); Platelet Estimate MKD DEC (ADEQ); Promyelocyte 2 (0-0); Red Cell Morphology NORM C+C NORMAL (NORM C&C); Total Cells Counted 100 (MANUAL DIFF)
[2019-10-16 10:14] LABS: Absolute Neutrophil Count 1.3 X10^3/uL (2.0-7.7)
[2019-10-16 10:15] LABS: Absolute Lymphocyte Count 1.22 X10^3/uL (0.83-4.51); Lymphocyte # 1.22 X10^3/ul (4.0)
[2019-10-16 12:55] VITALS: BMI 32.6
[2019-10-17] VITALS (9 sets, daily range): BP systolic 87–114; BP diastolic 44–76; PULSE 63–65; RESP 16; TEMP 36.2–36.3; O2SAT 93–100
[2019-10-17] MEDS: Lactated Ringers 1,000 ML 100 ML IV ×2 (07:20→09:05)
[2019-10-17] MEDS: Cefazolin 2 GM in 0.9% Normal Saline 100 ML IV (07:25)
[2019-10-17] MEDS: Bupivacaine Mpf 0.5% 30 ML VIAL (07:52)
--- NOTE | 2019-10-17 08:47 | RAD_ITS ---
STUDY: X-RAY CHEST REASON FOR EXAM: Male, 74 years old. POST PORT PLACEMENT TECHNIQUE: Single AP portable view of the chest. COMPARISON: Comparison is made with prior study of September 25, 2019. FINDINGS: A right-sided portacatheter has been placed. The tip is at the junction of the superior vena cava and right atrium. Stable 2.5 cm x 2.7 cm rounded nodule in the medial aspect of the right upper lobe. This is unchanged. Mild increased markings at the right lung base suggestive of atelectasis. There is no demonstrated pleural abnormality. There is borderline cardiomegaly. Normal mediastinum and irma. Normal visualized pulmonary arteries. There is atherosclerotic calcification of the aortic arch with tortuosity. There are diffuse degenerative changes of the visualized thoracic spine. Normal visualized ribs, clavicles, and shoulders. There is no demonstrated abnormality of the visualized soft tissue structures of the upper abdomen. RAD/CXR for Line Placement IMPRESSION: The tip of the right portacatheter is at the junction of the superior vena cava and right atrium. Stable appearance of the nodular density in the medial aspect of the right upper lobe. Mild increased markings at the right lung base as compared to prior study most likely secondary to atelectasis. Electronically Signed: Arnold Peralta, at 9:47 EDT , Service support ,
--- NOTE | 2019-10-17 09:08 | PCM.OPRPT ---
Report of Operation Date of Procedure: 10/17/19 Pre-Operative Diagnosis: Z 45.2, soft tissue sarcoma, bilateral lung nodules Post-Operative Diagnosis: Same Surgery/Procedure Performed:: 1. Insertion of right IJ port. 2. Use of ultrasound. 3. Use of fluoroscopy Type of Anesthesia:: Local MAC Anesthesiologist: Florentin Rogers Special Medications: Ancef 2 g IV x1, 2 units of sixpack pheresis platelets Specimen's removed: None Estimated Blood Loss (mL): Minimal Description of Procedure: After informed consent was given, the patient was brought to the operating room and placed in the supine position. Appropriate time out protocol was followed. He was then given IV conscious sedation for anesthesia. The patient's Right upper chest and neck were then prepped with a surgical skin preparation and sterile surgical drapes were placed. After proper landmarks were ascertained, the skin at the upper Right chest area was then infiltrated with 1:1 mixture of 1% lidocaine with epinephrine and 0.5% marcaine. A needle trocar was then inserted into the Right internal jugular vein with ultrasound guidance-multiple vessels were viewed with u/s and the Right IJ was chosen-- and there was good aspiration of venous blood. A wire was then threaded into the needle trocar and this was visualized under fluoroscopy to ensure that the wire was in the superior vena cava. Once this was done, then the needle trocar was removed. A small skin heather was made with an 11 blade knife at the wire entrance site. The dilator with the introducer sheath attached was then placed over the wire into the Right internal jugular vein via the Seldinger technique and this was visualized under fluoroscopy. The dilator and sheath were in proper position as visualized by fluoroscopy. A subcutaneous pocket was then created caudad to the catheter insertion site. A transverse skin incision was made after the skin and subcutaneous tissues were infiltrated with local anesthetic. Blunt dissection was then used to create a space large enough for placement of the subcutaneous port. The catheter was then tunneled into the subcutaneous pocket. The wire and dilator were then removed. The catheter was then threaded into the introducer sheath and was positioned with its tip at the junction of the superior vena cava and the right atrium as visualized under fluoroscopy. The excess catheter was transected. The catheter was then attached to the subcutaneous port using manufacturers guidelines. The catheter was flushed with a heparin saline mixture prior to placement. Hemostasis was carefully controlled with electrocautery. The port was sutured to the subcutaneous fascia using 2-0 Vicryl suture at two sites. The port was then placed in the subcutaneous pocket and the sutures were ligated. The incision were reapproximated with interrupted subdermal 3-0 vicryl sutures. The skin was reapproximated with 3-0 nylon suture in a interrupted fashion. Port was accessed and both ports wilson well and flushed well. Steristrips were used for reinforcement of the skin closure at IJ insertion site and a sterile opsite dressings were applied. 4x4 gauze was placed over the accessed port with a large opsite. The patient tolerated the procedure well. Implants Used: [employer] PowerPort isp M.[employer].I. 6Fr Lot [id number] [id number] Grafts/Implants Used: [employer] PowerPort isp M.R.[employer]. 6Fr Lot [id number] [id number] - Complications none
[2019-10-18 10:20] LABS: Pathologist Review Reviewed
== END 2019-10-17 10:45 | disposition home or self-care (01) ==
LOC: SDC 09:15 → AC 09:16
PROVIDERS: PCP Family Medicine; Referring Provider Surgery; Visit Provider Surgery
PROC: (CPT 36561; principal; 2019-10-17 07:15)
DX: D46.9 Myelodysplastic syndrome, unspecified (principal); R91.8 Other nonspecific abnormal finding of lung field; C49.0 Malignant neoplasm of connective and soft tissue of head, face and neck; D61.818 Other pancytopenia; E78.00 Pure hypercholesterolemia, unspecified; Z45.2 Encounter for adjustment and management of vascular access device; Z79.899 Other long term (current) drug therapy; Z87.891 Personal history of nicotine dependence
CPT/HCPCS: 36561; 36415; 36430; 71045; 77001; 85025; 86644; 86850; 86900; 86901; 86920; 86922; 86965; J7040; J7120; P9016; P9035; A4216; J2405

== ENCOUNTER 2019-12-17 09:15 | Emergency (ER) | payer MEDICARE, OTHER, SELFPAY ==
[2019-12-16 08:33] VITALS: BMI 31.1
[2019-12-17 09:16] VITALS: BP 140/61; PULSE 85; RESP 20; TEMP 36; O2SAT 98; BMI 31.8
--- NOTE | 2019-12-17 09:20 | EKG12_ITS ---
Test Reason : CP Blood Pressure : / mmHG Vent. Rate : 088 BPM Atrial Rate : 088 BPM P-R Int : 152 ms QRS Dur : 080 ms QT Int : 366 ms P-R-T Axes : 055 -26 015 degrees QTc Int : 442 ms Normal sinus rhythm Low voltage QRS Nonspecific ST abnormality Abnormal ECG Confirmed by RUPA VILLAFANA, ERIK ([id number]), international editorial producer CAROLINE FLORES ([id number]) on 12/19/2019 10:38:34 AM Referred By: BRIJESH Confirmed By:ERIK GOODE MD
--- NOTE | 2019-12-17 09:28 | ED.DCSUM_ITS ---
History of Present Illness Chief Complaint: Chest Pain Informant: Patient Onset: Today Context: Sudden Onset Timing: Continuous Current Severity: Mild Maximum Severity: Mild Narrative: The patient is a 74-year-old male with medical history significant for myelodysplastic syndrome who follows with [place] [facility]ology that presents to the emergency department with chest pain. Patient had transfusion of 1 unit of red blood cells on Monday. He is also currently on chemo. He states that today, he began have some tightness across his chest. It was nonradiating. It was not made worse with exertion. He states that sometimes this will happen when his counts are off. He was sent in by his oncologist. He denies any fevers or chills. He denies any history of coronary vascular disease. Prior similar symptoms: Yes Recent Illness/Hospitalization: No Past Medical History - Allergies and Home Meds Allergies/Adverse Reactions: Allergies No Known Allergies Allergy (Verified 12/17/19 09:19) Primary Care Physician: Ernesto Hobson MD [Primary Care Provider] - Prior records reviewed: Yes Past Medical History: - - Myelodysplastic syndrome, chronic anemia Surgical History: - - Sarcoma removal, port placement Lives: With Family Smoking Status: Former smoker - Family History Paternal Family History: Family History (Last Reviewed 12/16/19 @ 08:32 by Suzan Grayson) Father Prostate cancer Mother Lung cancer Family History: Reports: No pertinent history - No first-degree history of cancer in father mother brother sister. Review of Systems General: Denies: Chills, Fever, Sweats Eyes: Denies: Visual changes - bilaterally, Diplopia ENT: Denies: Rhinorrhea, Sore throat Cardiovascular: Reports: Chest pain. Denies: Palpitations Respiratory: Denies: Dyspnea, Cough, Dyspnea on exertion Gastrointestinal: Denies: Abdominal pain, Nausea, Vomiting, Diarrhea, Melena, Hematochezia Genitourinary: Denies: Dysuria, Hematuria, Frequency Musculoskeletal: Denies: Back pain, Extremity Pain Skin: Denies: Rash, Wounds Neurological: Denies: Headache, Weakness, Numbness Physical Exam Vital Signs/Narrative: Vital Signs Temp Pulse Resp BP Pulse Ox 12/17/19 09:16 96.8 F L 85 20 H 140/61 H 98 Inital Vital Signs reviewed: Yes General: Well nourished, Well developed, No Acute Distress Head: Normocephalic, Atraumatic Eyes: Perrl, EOMI ENT: Moist mucous membranes, No rhinorrhea Neck: Supple, Nontender Cardiovascular: Regular rate, Regular rhythm, No murmurs Respiratory: No distress, CTA bilaterally, Chest nontender Abdomen: Soft, Nontender, Nondistended, Normal bowel sounds Back: Nontender, Normal Inspection Extremities: Nontender, No edema Skin: Normal color, No rash Neurological: Alert, Oriented x3, Cranial nerves II-XII grossly intact, Normal Strength, Normal Sensation Psychological: Normal affect, Normal Mood Diagnostic/Tx/Re-eval Clinical Impression(s) from Imaging Studies Chest X-Ray 12/17/19 09:35 IMPRESSION: Mild enlargement of the nodule in the medial aspect of the right upper lobe as described. Electronically Signed: Arnold Peralta, at 9:57 EDT , Service support , Abnormal Lab Results 12/17/19 12/17/19 12/17/19 08:25 08:25 08:25 WBC 14.9 H RBC 2.65 L Hgb 8.0 L Hct 24.4 L MCV 92.1 MCH 30.2 MCHC 32.8 RDW Std Deviation 47.6 H RDW Coeff of Javire 14.7 H Plt Count 4 L* MPV 10.8 Neut % (Auto) Not Reportable Sodium 140 Potassium 4.1 Chloride 104 Carbon Dioxide 30.0 Anion Gap 6 BUN 25 H Creatinine 1.02 Estim Creat Clear Calc 64.50 Est GFR (MDRD) Af Amer 92 Est GFR (MDRD) Non-Af 76 BUN/Creatinine Ratio 24.5 H Glucose 129 H Calcium 8.9 Troponin I < 0.015 B-Natriuretic Peptide 99.4 - Rhythm Strip Rhythm Strip: Sinus Rhythm Rate: 80 Ectopy: None - EKG Initial EKG Interpretation: Sinus Rhythm, No Acute Injury Pattern Prior: Unchanged - Medical Decision Making The patient presents with chest tightness that he had before when his blood counts were low. EKG was obtained which was sinus rhythm without acute ischemia. The patient's been having the symptoms for the past 6 hours. His cardiac enzymes were negative. His hemoglobin is stable at 8. His chest x-ray does not show evidence of acute heart failure or volume overload. Platelets h owever are markedly decreased. I did discuss this with Dr. tawana Mcgrath's, the patient's oncologist who wants him to come over to outpatient infusion center to get his platelet treatment. The patient is comfortable with this plan of care. Impression 1. Atypical chest pain 2. Acute on chronic thrombocytopenia ED Disposition - Plan for ED Patient: Instructions: ED Chest Pain Atypical Unkn Cause Referrals: Ernesto Hobson MD [Primary Care Provider] -
[2019-12-17] MEDS: Aspirin 81 MG TAB.CHEW 324 MG PO (09:34)
--- NOTE | 2019-12-17 09:35 | RAD_ITS ---
STUDY: X-RAY CHEST REASON FOR EXAM: Male, 74 years old. CHEST PAIN TECHNIQUE: Single AP portable view of the chest. COMPARISON: Comparison is made with prior examination dated October 17, 2019. FINDINGS: A right-sided portacatheter is seen with the tip at the junction of the superior vena cava and right atrium. EKG electrodes are seen. There is a 3.1 cm x 2.8 cm well-defined nodule in the medial aspect of the right upper lobe. This has increased minimally in size as compared to prior study. Stable linear density at the left lung base suggestive of a linear atelectasis and/or scarring. There is no demonstrated pleural abnormality. Normal size heart. Normal mediastinum and irma. Normal visualized pulmonary arteries. Normal visualized aortic arch and descending thoracic aorta. There are diffuse degenerative changes of the visualized thoracic spine. Normal visualized ribs, clavicles, and shoulders. There is no demonstrated abnormality of the visualized soft tissue structures of the upper abdomen. RAD/Chest 1 View (Portable) IMPRESSION: Mild enlargement of the nodule in the medial aspect of the right upper lobe as described. Electronically Signed: Arnold Peralta, at 9:57 EDT , Service support ,
[2019-12-17 09:37] LABS: Hematocrit 24.4 % (40-54); Mean Corp Hgb Conc 32.8 g/dL (32-36); Mean Corpuscular Hgb 30.2 pg (27.0-32.0); Mean Corpuscular Volume 92.1 fL (80-94); Mean Platelet Vol. 10.8 fl (6.2-12.0); POSITIVE COUNT YES; POSITIVE DIFFERENTIAL YES; POSITIVE MORPHOLOGY YES; RBC Distribution Width CV 14.7 % (11.6-14.6); RBC Distribution Width SD 47.6 fl (35.1-43.9); Red Blood Count 2.65 M/mm3 (4.6-6.2); White Blood Count 14.9 K/mm3 (4.4-11.0)
[2019-12-17 09:39] LABS: Differential Indicated MANUAL DIFF
[2019-12-17 09:40] LABS: Platelet Count 4 K/mm3 (150-450)
[2019-12-17 09:52] LABS: Anion Gap 6 (5-15); BUN 25 mg/dL (7-18); BUN/Creat Ratio 24.5 RATIO (10-20); Calcium,Total 8.9 mg/dL (8.5-10.1); Chloride 104 mmol/L (98-107); Creatinine, Serum 1.02 mg/dL (0.70-1.30); EST Glomerular Filtration Rate 76 mL/min (>60); Est Glom Filt Rate - Afr Amer 92 mL/min (>60); Glucose 129 mg/dL (74-106); Potassium 4.1 mmol/L (3.5-5.1); Sodium Level 140 mmol/L (136-145)
[2019-12-17 09:58] LABS: BNP,B-Type NATRIURETIC PEPTIDE 99.4 pg/mL (0-100)
[2019-12-17 10:09] LABS: Blast 10 % (0-0); Eosinophil 3 % (0-5); Lymphocyte 12 % (19-41); Metamyelocyte 8 % (0-1); Monocyte 14 % (0-10); Myelocyte 3 (0-0); Neutrophil-Band 8 % (0-5); Neutrophil-Segmented 37 % (47-70); Promyelocyte 5 (0-0); Total Cells Counted 100 (MANUAL DIFF)
[2019-12-17 10:10] VITALS: BP 110/52; PULSE 79; RESP 16; O2SAT 97
[2019-12-17 10:10] LABS: Hypochromasia 2+; Platelet Estimate MKD DEC (ADEQ)
[2019-12-17 10:11] LABS: Absolute Lymphocyte Count 1.77 X10^3/uL (0.83-4.51); Absolute Neutrophil Count 6.7 X10^3/uL (2.0-7.7)
[2019-12-18 12:24] LABS: Pathologist Review Reviewed
== END 2019-12-17 10:11 | disposition home or self-care (01) ==
LOC: ED 10:08
PROVIDERS: Emergency Provider Emergency Medicine; PCP Family Medicine
DX: R07.89 Other chest pain (principal); D69.6 Thrombocytopenia, unspecified; D46.9 Myelodysplastic syndrome, unspecified; Z87.891 Personal history of nicotine dependence; D61.818 Other pancytopenia; C61 Malignant neoplasm of prostate; C49.0 Malignant neoplasm of connective and soft tissue of head, face and neck
CPT/HCPCS: 36591; 71045; 80048; 83880; 84484; 85025; 86850; 86900; 86901; 86965; 93005; 96366; 96367; 96413; 99283; J7030; J7040; J7050; P9035; A4216; J2405; J3490; J9025